=== PATIENT | female | born 1980 | race Caucasian/White ===

== ENCOUNTER 2017-12-18 12:16 | Emergency (ER) | payer MEDICAID, OTHER ==
[~2017-12-18] VITALS: Ht 165.1 cm; Wt 89.1 kg
[2017-12-18 12:29] VITALS: BP 152/80
== END 2017-12-18 13:17 | disposition home or self-care (01) ==
LOC: ED 13:10
DX: J02.9 Acute pharyngitis, unspecified (principal)
CPT/HCPCS: 71046; 87081; 87880; 99285

== ENCOUNTER 2018-05-28 08:30 | Emergency (ER) | payer MEDICAID, OTHER ==
[~2018-05-28] VITALS: Ht 165.1 cm; Wt 88.0 kg
[2018-05-28 08:35] VITALS: BP 116/79
[2018-05-28] MEDS ORDERED: HYDROcodone/APAP 7.5-325MG/15ML UDC PO ONE (09:30)
[2018-05-28] MEDS ORDERED: DEXAMETHASONE 4 MG/ML, 1ML PO ONE (09:30)
[2018-05-28] MEDS ORDERED: HYDROcodone/APAP 7.5-325MG/15ML UDC ONE (09:32)
[2018-05-28] MEDS ORDERED: DEXAMETHASONE 4 MG/ML, 1ML ONE (09:33)
--- NOTE | 2018-05-28 09:50 | NUR ---
Patient/Caregiver given discharge instructions and they have confirmed that they understand the instructions. Patient ambulatory with steady gait. pt left with all personal belongings.
== END 2018-05-28 09:51 | disposition home or self-care (01) ==
LOC: ED 09:00
DX: J02.9 Acute pharyngitis, unspecified (principal); F17.210 Nicotine dependence, cigarettes, uncomplicated
CPT/HCPCS: 71046; 87081; 87880; 99284; J1100

== ENCOUNTER 2019-02-27 08:54 | Emergency (ER) | payer MEDICAID, OTHER ==
[~2019-02-27] VITALS: Ht 167.6 cm; Wt 89.7 kg
--- NOTE | 2019-02-27 08:57 | NUR ---
NA X1
[2019-02-27] MEDS ORDERED: DEXAMETHASONE 4 MG TABLET ONE (09:26)
[2019-02-27] MEDS ORDERED: DEXAMETHASONE 4 MG TABLET PO ONE (09:30)
[2019-02-27 10:14] VITALS: BP 127/83
== END 2019-02-27 10:16 | disposition home or self-care (01) ==
LOC: ED 10:10
DX: J02.8 Acute pharyngitis due to other specified organisms (principal); B34.9 Viral infection, unspecified
CPT/HCPCS: 71046; 87081; 87880; 99284

== ENCOUNTER 2019-04-21 00:02 | Emergency (ER) | payer OTHER ==
[~2019-04-21] VITALS: Ht 165.1 cm; Wt 91.0 kg
--- NOTE | 2019-04-21 00:05 | NUR ---
patient called for triage. patient in restroom.
[2019-04-21] MEDS ORDERED: DEXAMETHASONE 4 MG TABLET ONE (00:29)
[2019-04-21] MEDS ORDERED: DEXAMETHASONE 4 MG/ML, 1ML PO ONE (00:30)
--- NOTE | 2019-04-21 00:34 | NUR ---
PT MEDICATED AT THIS TIME AND BACK TO LOBBY, GIVEN MASK TO WEAR, PT STATES THAT IF IT FOGS HER GLASSES SHE IS TAKING IT OFF, AWARE OF THE PRECAUTIONS AND REASONS FOR.
--- NOTE | 2019-04-21 00:35 | NUR ---
SWALLOW PILLS WITHOUT PROBLEM AND DRANK FULL GLASS OF WATER
[2019-04-21 01:38] VITALS: BP 139/86
--- NOTE | 2019-04-21 01:42 | NUR ---
Patient given discharge instructions and they have confirmed that they understand the instructions. Patient ambulatory with steady gait.
== END 2019-04-21 01:43 | disposition home or self-care (01) ==
LOC: ED 01:28
DX: J02.8 Acute pharyngitis due to other specified organisms (principal); B97.89 Other viral agents as the cause of diseases classified elsewhere; Z98.51 Tubal ligation status
CPT/HCPCS: 70360; 87081; 87880; 99284; J1100

== ENCOUNTER 2020-02-02 07:25 | Emergency (ER) | payer SELFPAY ==
[~2020-02-02] VITALS: Ht 165.1 cm; Wt 80.3 kg
[2020-02-02] MEDS ORDERED: FLUORESCEIN/BENOXINATE 5 ML DROPS OP ONE (08:00)
[2020-02-02 08:14] LABS: MEAN CORPUSCULAR HEMOGLOBIN 34.1 pg (27.0-34.8); MEAN CORPUSCULAR HGB CONC 34.1 g/dL (32.4-35.8); MEAN PLATELET VOLUME 8.5 fL (7.4-10.4); PLATELET COUNT 193 x10^3/uL (130-400); RED BLOOD COUNT 3.98 x10^6/uL (3.82-5.3); RED CELL DISTRIBUTION WIDTH 12.6 % (9.6-15.2)
[2020-02-02 08:26] LABS: ALBUMIN 3.3 g/dL (3.4-5.0); ANION GAP 5 mmol/L (5-15); CALCIUM 8.2 mg/dL (8.5-10.1); CHLORIDE 110 mmol/L (98-107); CREATININE 0.69 mg/dL (0.55-1.02)
[2020-02-02 08:30] LABS: ALANINE AMINOTRANSFERASE 20 U/L (12-78); ALKALINE PHOSPHATASE 45 U/L (45-117); BILIRUBIN,TOTAL 0.7 mg/dL (0.2-1.0)
[2020-02-02 08:45] LABS: MD YES
[2020-02-02 08:47] LABS: <PLATELET ESTIMATE> ADEQUATE; <PLT MORPHOLOGY> NORMAL PLT MORPH; <RBC MORPHOLOGY> NORMAL; BASOS#(MANUAL) 0.05 x10^3/uL (0-0.1); BASOS% (MANUAL) 1 % (0-1); EOS#(MANUAL) 0.19 x10^3/uL (0.0-0.4); EOS% (MANUAL) 4 % (1-7); LYMPH#(MANUAL) 0.99 x10^3/uL (1-3.4); LYMPHS% (MANUAL) 21 % (22-44); MONOS#(MANUAL) 0.42 x10^3/uL (0.3-2.7); MONOS% (MANUAL) 9 % (2-9); REACTIVE LYMPHS # (MANUAL) 0.09 x10^3/uL (0-0); REACTIVE LYMPHS % (MANUAL) 2 % (0-0); SEG#(MANUAL) 2.96 x10^3/uL (1.8-6.8); SEGS% (MANUAL) 63 % (42-75)
[2020-02-02 08:58] VITALS: BP 147/90
--- NOTE | 2020-02-02 09:15 | NUR ---
Patient given discharge instructions and they have confirmed that they understand the instructions. Patient ambulatory with steady gait.
== END 2020-02-02 09:17 | disposition home or self-care (01) ==
LOC: ED 07:52
DX: L03.213 Periorbital cellulitis (principal); F17.210 Nicotine dependence, cigarettes, uncomplicated; Z98.51 Tubal ligation status
CPT/HCPCS: 36415; 80053; 85025; 99283; 99406